=== PATIENT | female | born 1990 | race African-American/Black ===

== ENCOUNTER 2018-12-04 11:11 | Outpatient (CLI) | payer OTHER ==
[~2018-12-04] VITALS: Ht 167.6 cm; Wt 75.9 kg
[2018-12-04 11:30] VITALS: BP 124/79; PULSE 85; TEMP 97.8
[2018-12-04] MEDS ORDERED: PRENATAL MVI (11:36)
[2018-12-04 11:38] VITALS: BP 124/79; PULSE 85; TEMP 97.9
[2018-12-04 12:00] VITALS: BP 123/82; PULSE 85
--- NOTE | 2018-12-04 12:00 | NUR ---
1130-Patient arrives on unit for scheduled version, spouse present, exam completed with history, consents signed and patient placed on monitors. IV started. FHR noted with variables intermittently which was reviewed by Dr. Nevarez. 1150- Terbutaline given per protocol as instructed by physician to give at this time. 1200- and at bedside for completion of version, ultrasound completed and used for monitoring of FHR by . x2 attempts for movement of baby which was unsuccesfull. 1207- Dr. Nevarez discusses with patient scheduling of and plan of care. Patient will be conitnue to be monitored 1300- Patient discharged, NST completed and reactive. Patient escorted off unit. Instructed to continue with routine care.
--- NOTE | 2018-12-04 12:58 | NUR ---
Orders per Dr. Nevarez for discharge. Pt taken off monitors. IV discontinued. Discharge instructions given. No questions or concerns at this time. Pt leaves unit ambulatory with spouse.
== END 2018-12-05 09:27 | disposition home or self-care (01) ==
LOC: LDRO 11:11 → LDR 11:48 → LDRO 13:00 → EDSTATUS 12-10 08:57 → LDRO 12-10 14:41
DX: O32.1XX0 Maternal care for breech presentation, not applicable or unspecified (principal); Z3A.39 39 weeks gestation of pregnancy
CPT/HCPCS: OP; J3105

== ENCOUNTER 2018-12-10 09:52 | Inpatient (IN) | payer OTHER ==
[2018-12-10] VITALS (18 sets, daily range): BP systolic 109–139; BP diastolic 59–85; PULSE 65–98; TEMP 97.5–98.4
[~2018-12-10] VITALS: Ht 167.6 cm; Wt 76.4 kg
[~2018-12-10 09:52] MED LIST: PRENATAL MVI
--- NOTE | 2018-12-10 10:00 | NUR ---
Pt arrives on unit ambulatory with spouse. States contractions that have increased since 0200 and bloody show. Reports good movement and denies LOF. Changed into clean gown. EFM and toco applied. VSS. SVE per this RN /-2 with bloody show. Admission assessment completed. Dr. Nevarez notified. See physician notification. Pt udpated on POC. Bed locked in low position. Call light within reach.
[2018-12-10 11:07] LABS: BASO % 0.3 % (0.0-2.0); EOS # 0.1 (0.0-0.7); EOS % 1.5 % (0-4.0); GRAN # 4.9 (1.4-6.5); GRAN % 61.6 % (42.2-75.2); HEMATOCRIT 40.9 % (37.0-47.0); HEMOGLOBIN 13.8 g/dl (12.5-16.0); LYMPH # 2.2 (1.2-3.4); LYMPH % 28.1 % (20.0-51.0); MEAN CELL VOLUME 85 fl (80.0-100.0); MEAN CORPUSCULAR HEMOGLOBIN 29 pg (27.0-31.0); MEAN CORPUSCULAR HGB CONC 34 g/dl (33.0-37.0); MEAN PLATELET VOLUME 11.3 fl (7.4-10.4); MONO # 0.6 (0.1-0.6); PLATELET COUNT 180 K/mm3 (130-400); REDCELL DISTRIBUTION WIDTH-CV 12.9 % (11.5-14.5)
[2018-12-11 00:15] VITALS: BP 118/73; PULSE 94; TEMP 97.8
[2018-12-11 07:02] VITALS: BP 142/80; PULSE 82; TEMP 97.9
--- NOTE | 2018-12-11 10:28 | NUR ---
Initial visit; Parents thanked for offering congratulations and Blessings for the of their son. thanked family for choosing [facility].
[2018-12-11 16:16] VITALS: BP 116/81; PULSE 85; TEMP 98.9
[2018-12-11 20:30] VITALS: BP 114/68; PULSE 80; TEMP 97.6
[2018-12-12 07:40] VITALS: BP 124/81; PULSE 74; TEMP 98.4
[2018-12-12] MEDS ORDERED: IBU600 MG PO (12:28)
[2018-12-12] MEDS ORDERED: PERCOCET 325 MG1 TA2 PO (12:28)
[2018-12-12 17:10] VITALS: BP 126/87; PULSE 76; TEMP 98.7
[2018-12-12 20:00] VITALS: BP 105/68; PULSE 99; TEMP 98.6
[2018-12-13 07:57] VITALS: BP 123/74; PULSE 64; TEMP 98.1
[2018-12-13] MEDS ORDERED: NEWMANS TOP (09:29)
== END 2018-12-13 12:17 | disposition home or self-care (01) | DRG 788 ==
LOC: LDRO 09:52 → OB 10:17 → LDR 10:17 → OB 14:00
PROVIDERS: ADMIT Obstetrics & Gynecology
PROC: 10D00Z1 Extraction of Products of Conception, Low, Open Approach (ICD-10-PCS; principal; 2018-12-10)
DX: O32.1XX0 Maternal care for breech presentation, not applicable or unspecified (principal); Z3A.40 40 weeks gestation of pregnancy; O69.1XX0 Labor and delivery complicated by cord around neck, with compression, not applicable or unspecified; O34.13 Maternal care for benign tumor of corpus uteri, third trimester; D25.9 Leiomyoma of uterus, unspecified; Z37.0 Single live birth
CPT/HCPCS: J0690; J1885; J2270; J2370; J2405; J2590; J7120

== ENCOUNTER 2021-04-13 06:47 | Inpatient (IN) | payer OTHER ==
[2021-04-13] VITALS (14 sets, daily range): BP systolic 95–121; BP diastolic 54–69; PULSE 66–96; TEMP 97–98
[~2021-04-13] VITALS: Ht 168.9 cm; Wt 83.6 kg
[~2021-04-13 06:47] MED LIST changes: +IBU600 MG PO; +NEWMANS TOP; +PERCOCET 325 MG1 TA2 PO
--- NOTE | 2021-04-13 10:25 | NUR ---
Patient ambulates to LR3 with spouse, changed into gown, FHR/TOCO monitors placed and explained. Patient here for scheduled csection. Denies any leaking of fluid/vaginal bleeding/decreased movement/regular contractions. Plan of care discussed and questions answered. 1035: IV started in left hand, blood obtained and to lab, LR infusing. Assessment completed and consents signed.
[2021-04-13] MEDS ORDERED: ZYRTEC 10MG10 MG PO (10:53)
[2021-04-13 11:14] LABS: BASO % 0.5 % (0.0-2.0); EOS # 0.2 K/mm3 (0.0-0.7); EOS % 3.2 % (0-4.0); GRAN # 3.5 K/mm3 (1.4-6.5); GRAN % 55.8 % (42.2-75.2); LYMPH # 1.8 K/mm3 (1.2-3.4); LYMPH % 28.4 % (20.0-51.0); MEAN CELL VOLUME 82 fl (80.0-100.0); MEAN CORPUSCULAR HEMOGLOBIN 27 pg (27.0-31.0); MEAN CORPUSCULAR HGB CONC 33 g/dl (33.0-37.0); MEAN PLATELET VOLUME 11.1 fl (7.4-10.4); MONO # 0.7 K/mm3 (0.1-0.6); MONO % 11.1 % (1.7-9.3); PLATELET COUNT 193 K/mm3 (130-400); RED BLOOD COUNT 4.41 M/mm3 (4.10-5.30); REDCELL DISTRIBUTION WIDTH-CV 14.5 % (11.5-14.5)
[2021-04-13 11:15] LABS: HEMATOCRIT 36.3 % (37.0-47.0)
--- NOTE | 2021-04-13 11:36 | NUR ---
1100: tHIS RN IS ASSUMING CARE OF UNDELIVERED PT.
--- NOTE | 2021-04-13 11:36 | NUR ---
FHT 1100: CTX NOTED 4-9MIN APART, LASTING 100 SECS. 1130: OCCASIONAL CTX NOTED LASTING 120-180SEC
--- NOTE | 2021-04-13 16:55 | NUR ---
1400: UPON LEAVING PACU, TEMPERATURE WAS TAKEN IN RECOVERY ROOM. ORAL TEMP WOULD NOT TAKE AND AXILLARY TEMP WAS 96.1F. WARM BLANKETS WERE PUT ON PT AND THERMOSTAT TURNED UP. 1500: PT. STATED HER ICE WATER WAS MAKING HER FEEL A LITTLE CHILLY. RN GOT NEW WATER W/ NO ICE. THERMOSTAT IN ROOM WAS INCREASED A LITTLE MORE AND WARM BLANKET WAS PLACED AROUND HEAD/SHOULDERS. 1600: RN WENT INTO PT ROOM TO ASSESS TEMP STATUS. ORAL TEMPERATURE TOOK SHOWING 97.3F. PT. STATED SHE WAS FEELING BETTER AND WARMER THAN BEFORE
[2021-04-14 00:30] VITALS: BP 124/80; PULSE 66; TEMP 98.7
[2021-04-14 05:00] VITALS: BP 117/77; PULSE 78; TEMP 97.7
[2021-04-14 07:10] VITALS: BP 111/76; PULSE 84; TEMP 98
[2021-04-14 07:30] VITALS: BP 111/76; PULSE 84; TEMP 98
[2021-04-14] MEDS ORDERED: ROXICODONE 55 MG/TAB PO (08:54)
[2021-04-14] MEDS ORDERED: IBU600 MG PO (08:54)
--- NOTE | 2021-04-14 09:19 | NUR ---
Initial visit; Patient indisposed, Multifocal Button Inspector left card of congratulations for the of her son and information regarding the availability of spiritual care at our hospital.
[2021-04-14 16:02] VITALS: BP 132/88; PULSE 84; TEMP 98.9
[2021-04-14 21:30] VITALS: BP 128/85; PULSE 94; TEMP 97.9
[2021-04-15 08:55] VITALS: BP 128/85; PULSE 80; TEMP 97.9
--- NOTE | 2021-04-15 11:46 | NUR ---
WITH MORNING PT ROUNDS PT C/O SARMIENTO FOR THE LAST 2 DAYS. SHE REPORTS THIS IS WORSE WHEN UPRIGHT AND FEELS BETTER WHEN LYING DOWN. SHE IS NOT A CAFFIENE DRINKER. SHE TOOK TYLENOL 2 HRS AGO AND STILL RATES PAIN 6/10. SHE DID HAVE SPINAL FOR HER C/S. I OFFRED PT COFFEE AND COLD COMPRESS FOR HER SARMIENTO, I DID ALERT ANESTHESIA TO PT C/O AND ASKED FOR THEM TO CONSULT TO ENSURE A BLOOD PATCH DID NOT NEED DONE AT THIS POINT PT NURSE AND CHARGE NURSE WERE MADE AWARE
[2021-04-15 16:26] VITALS: BP 118/80; PULSE 74; TEMP 98.2
[2021-04-15 22:20] VITALS: BP 129/82; PULSE 69; TEMP 98
[2021-04-16 08:50] VITALS: BP 126/86; PULSE 75; TEMP 99.3
--- NOTE | 2021-04-16 10:50 | NUR ---
DISCHARGE INSTRUCTIONS REVIEWED WITH PATIENT. PATIENT VERBALIZED UNDERSTANDING. PATIENT WILL NOTIFY THIS RN WHEN READY TO LEAVE.
--- NOTE | 2021-04-16 11:55 | NUR ---
ALL PERSONAL BELONGINGS GATHERED FROM PATIENT ROOM. PATIENT LEFT AMBULATORY AND IN NO APPARENT DISTRESS. PATIENT ACCOMPANIED BY SPOUSE AND THIS RN.
== END 2021-04-16 11:55 | disposition home or self-care (01) | DRG 788 ==
LOC: OB 06:47 → LDR 10:05 → OB 19:04
PROVIDERS: ADMIT Obstetrics & Gynecology
PROC: 10D00Z1 Extraction of Products of Conception, Low, Open Approach (ICD-10-PCS; principal; 2021-04-13)
PROC: 0HB7XZZ Excision of Abdomen Skin, External Approach (ICD-10-PCS; 2021-04-13)
DX: O34.211 Maternal care for low transverse scar from previous cesarean delivery (principal); O34.22 Maternal care for cesarean scar defect (isthmocele); L91.0 Hypertrophic scar; O90.89 Other complications of the puerperium, not elsewhere classified; R51.9 Headache, unspecified; Z3A.40 40 weeks gestation of pregnancy; Z37.0 Single live birth
CPT/HCPCS: J0171; J0690; J1100; J1885; J2370; J2405; J2590; J7120